=== PATIENT | male | born 1985 | race Caucasian/White ===

== ENCOUNTER 2016-09-15 11:17 | Emergency (ER) | payer OTHER ==
[~2016-09-15 11:17] MED LIST: BENZONATATE; CLINDAMYCIN HC300 MG PO; MUCINEX100 MG/BOX; NO MEDICATIONS; PREDNISONE PO; ULTRAM PO; VICODIN 5/500 T1 TAB PO; VOLTAREN75 MG PO
[2016-09-15 12:22] LABS: INFLUENZA A NEG (NEG); INFLUENZA B NEG (NEG)
== END 2016-09-15 12:42 | disposition home or self-care (01) ==
LOC: SED 11:17
PROVIDERS: Nurse Practitioner
DX: B34.9 Viral infection, unspecified (principal); F17.210 Nicotine dependence, cigarettes, uncomplicated
CPT/HCPCS: 87651; 87804; 99282

== ENCOUNTER 2016-09-17 11:35 | Emergency (ER) | payer OTHER | END 2016-09-17 11:42 | disposition home or self-care (01) | LOC: SED 11:35 | DX: H10.31 Unspecified acute conjunctivitis, right eye (principal) | CPT/HCPCS: 99283 ==

== ENCOUNTER 2016-09-28 12:28 | Emergency (ER) | payer OTHER | END 2016-09-28 13:49 | disposition home or self-care (01) | LOC: SED 12:28 | DX: H60.91 Unspecified otitis externa, right ear (principal); F17.210 Nicotine dependence, cigarettes, uncomplicated | CPT/HCPCS: 99282 ==

== ENCOUNTER 2016-11-05 14:40 | Emergency (ER) | payer OTHER ==
[2016-11-05] MEDS ORDERED: NO MEDICATIONS (14:42)
[2016-11-05 15:13] LABS: INFLUENZA A NEG (NEG); INFLUENZA B NEG (NEG)
== END 2016-11-05 15:25 | disposition home or self-care (01) ==
LOC: SED 14:40
PROVIDERS: Nurse Practitioner
DX: J30.2 Other seasonal allergic rhinitis (principal); J06.9 Acute upper respiratory infection, unspecified; F17.210 Nicotine dependence, cigarettes, uncomplicated
CPT/HCPCS: 87804; 99282